=== PATIENT | male | born 1945 | race Two or more races ===

== ENCOUNTER 2022-02-10 07:30 | Outpatient (CLI) | payer OTHER | END 2022-02-10 07:43 | disposition home or self-care (01) | LOC: RAD 07:30 | PROVIDERS: ATTEND Surgery | DX: K59.09 Other constipation (principal) ==

== ENCOUNTER 2022-09-13 07:09 | Outpatient (CLI) | payer OTHER ==
[2022-09-15] MEDS ORDERED: SYNTHROID100 MCG PO (10:10)
[2022-09-15] MEDS ORDERED: ATORVASTATIN CA10 MG PO (10:10)
== END 2022-09-13 07:15 | disposition home or self-care (01) ==
LOC: LAB 07:09
PROVIDERS: ATTEND Orthopaedic Surgery Hand Surgery
DX: Z01.810 Encounter for preprocedural cardiovascular examination (principal); N39.0 Urinary tract infection, site not specified; E11.9 Type 2 diabetes mellitus without complications; E78.00 Pure hypercholesterolemia, unspecified; E78.3 Hyperchylomicronemia; D65 Disseminated intravascular coagulation [defibrination syndrome]; D66 Hereditary factor VIII deficiency; Z20.822 Contact with and (suspected) exposure to COVID-19

== ENCOUNTER 2022-09-16 05:53 | Day surgery (SDC) | payer OTHER ==
[~2022-09-16] VITALS: Ht 182.9 cm; Wt 83.9 kg
[~2022-09-16 05:53] MED LIST: ATORVASTATIN CA10 MG PO; SYNTHROID100 MCG PO
== END 2022-09-16 15:45 | disposition home or self-care (01) ==
LOC: CIR.AMB 05:53
PROVIDERS: ATTEND Orthopaedic Surgery Hand Surgery
DX: D17.22 Benign lipomatous neoplasm of skin and subcutaneous tissue of left arm (principal); M25.822 Other specified joint disorders, left elbow; R22.32 Localized swelling, mass and lump, left upper limb; Z20.822 Contact with and (suspected) exposure to COVID-19

== ENCOUNTER 2023-04-06 08:26 | Outpatient (CLI) | payer OTHER | END 2023-04-06 08:29 | disposition home or self-care (01) | LOC: RX STUDY 08:26 | PROVIDERS: ATTEND Surgery | DX: K44.9 Diaphragmatic hernia without obstruction or gangrene (principal) ==